=== PATIENT | female | born 1990 | race Caucasian/White ===

== ENCOUNTER 2017-05-11 10:53 | Emergency (ER) | payer OTHER ==
[2017-05-11] MEDS ORDERED: HYDROcodone/APAP 5-325MG 1 EACH TAB PO STA (11:28)
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
--- NOTE | 2017-05-11 12:14 | XR ---
EXAMINATION TYPE: XR knee complete LT DATE OF EXAM: 05/11/2017 CLINICAL HISTORY: pain, history of tibial plateau fracture. TECHNIQUE: Three views of the left knee are obtained. COMPARISON: None. FINDINGS: Chronic tibial plateau deformity identified. There is ossific density adjacent to the media l femoral condyle. Avulsion fractures difficult to exclude. Correlate clinically with point tendernes s. IMPRESSION: There is ossific density adjacent to the medial femoral condyle. Avulsion fractures difficult to exc lude.
[2017-05-11 13:00] VITALS: BP 131/87; PULSE 72; RESP 16; TEMP 98.1
== END 2017-05-11 13:22 | disposition home or self-care (01) ==
LOC: EC 10:53
DX: S82.142A Displaced bicondylar fracture of left tibia, initial encounter for closed fracture (principal); F17.200 Nicotine dependence, unspecified, uncomplicated; X58.XXXA Exposure to other specified factors, initial encounter; Y92.009 Unspecified place in unspecified non-institutional (private) residence as the place of occurrence of the external cause
CPT/HCPCS: 73562; 99283; L1830

== ENCOUNTER → 2018-03-11 | Outpatient (CLI) | payer OTHER ==
--- NOTE | 2018-03-11 17:17 | US ---
EXAMINATION TYPE: US OB anatomy trans abd DATE OF EXAM: 03/11/2018 COMPARISON: NONE HISTORY: O36.62 large for dates second trimester TECHNIQUE: Transabdominal (TA) EXAM MEASUREMENTS: GESTATIONAL AGE / DATING Physician Established: unsure EDC: not established Dates by LMP: unsure EDC: not established Dates by First Scan: (24 weeks/3 days) EDC: 06/28/2018 Dates by Current Scan for: (23 weeks/2 days) EDC: 07/06/2018 SURVEY IUP: Single PLACENTA: Posterior PREVIA: low MARIA DOLORES: 14.4 cm Normal CERVICAL LENGTH (transabdominal: norm > 3.0cm): 3.9 cm BIOMETRY PRESENTATION: Vertex LIE: Longitudinal BPD: 5.8 cm 23 weeks / 6 days HC: 21 cm 23 weeks / 2 days AC: 19.0 cm 23 weeks / 5 days FL: 4.2 cm 23 weeks / 4 days ESTIMATED WEIGHT IN GRAMS: 617 grams ESTIMATED WEIGHT IN LBS/OZ: 1 lbs. 6 oz. WEIGHT PERCENTAGE BASED ON ESTABLISHED DATE: 13 % HC/AC: 1.1 FL/AC: 22.1 HEART RATE: 145 bpm RHYTHM: Normal ANATOMY SEEN (within normal limits): * Lateral Vent (< 1 cm) 0.9 cm * Cisterna Magna (< 1.1 cm) 0.3 cm * Nuchal Fold (< 0.6 cm) 0.2 cm * Cerebellum (varies with age) 2.4 cm Choroid Plexus (bilateral) Midline Falx Cavus Septi Pellucidi Four Chamber Heart Outflow tracts: LVOT/RVOT Stomach Situs Nose / Lips Diaphragm Kidneys (bilateral) Bladder Cord Insert Three Vessel Cord Longitudinal Spine Transverse Spine Arms (bilateral) Legs (bilateral) IMPRESSION: There is no evidence of macrosomia. The ultrasound gestational age is 23 weeks 2 days. The FENG according to this exam is 07/06/2018. I do not have an old exam to compare.
== END | disposition home or self-care (01) ==
LOC: RADUSWWP 16:11
PROVIDERS: ATTEND Obstetrics & Gynecology
DX: O36.62X0 Maternal care for excessive fetal growth, second trimester, not applicable or unspecified (principal); Z3A.23 23 weeks gestation of pregnancy
CPT/HCPCS: 76811

== ENCOUNTER 2018-06-21 06:00 | Inpatient (IN) | payer OTHER ==
[2018-06-22] MEDS ORDERED: TERBUTALINE 1 MG/ML VIAL SQ PRN (06:49)
[2018-06-22] MEDS ORDERED: CARBOPROST TROMETHAMINE 250 MCG/ML 1 ML AMP IM PRN (06:49)
[2018-06-22] MEDS ORDERED: OXYTOCIN 10 UNIT/ML 1 ML VIAL IM PRN (06:49)
[2018-06-22] MEDS ORDERED: METHYLERGONOVINE 0.2 MG/ML 1 ML AMP IM PRN (06:49)
[2018-06-22] MEDS ORDERED: LIDOCAINE 1% (PF) 10 MG/ML (30 ML SDV) SQ PRN (06:49)
[2018-06-22] MEDS ORDERED: OXYTOCIN 20 UNITS/1000 ML NS 1,000 ML IV SCH (07:00)
[2018-06-22 07:06] LABS: Basophils % (A) 1 %; Eosinophils # (A) 0.1 k/uL (0-0.7); Eosinophils % (A) 2 %; HCT 34.7 % (34.0-46.0); HGB 11.6 gm/dL (11.4-16.0); Lymphocytes # (A) 1.5 k/uL (1.0-4.8); Lymphocytes % (A) 26 %; MCH 30.6 pg (25.0-35.0); MCHC 33.4 g/dL (31.0-37.0); MCV 91.4 fL (80.0-100.0); Mean Platelet Volume 7.7; Monocytes # (A) 0.4 k/uL (0-1.0); Monocytes % (A) 7 %; Neutrophils # (A) 3.5 k/uL (1.3-7.7); Neutrophils % (A) 61 %; Platelet Count 237 k/uL (150-450); RDW 13.4 % (11.5-15.5); WBC 5.7 k/uL (3.8-10.6)
[2018-06-22] MEDS: LACTATED RINGERS 1,000 ML IV SCH ×3 (07:07→12:09)
[2018-06-22 07:31] VITALS: BMI 29.0
[2018-06-22 09:03] LABS: Amphetamine Screen,Urine Not Detected (NotDetected); Barbiturate Screen,Urine Not Detected (NotDetected); Benzodiazepines Screen,Urine Not Detected (NotDetected); Cocaine Screen,Urine Not Detected (NotDetected); Methadone Screen, Urine Not Detected (NotDetected); Opiate Screen,Urine Not Detected (NotDetected); Oxycodone Screen, Urine Not Detected (NotDetected); Phencyclidine Screen,Urine Not Detected (NotDetected); Tricyclic Antidepressant,Urine Not Detected (NotDetected); Urn Cannabinoid Scrn Not Detected (NotDetected)
[2018-06-22] MEDS ORDERED: ROPIVACAINE 100 MG, fentaNYL (PF) 200 MCG in SODIUM CHLORIDE 0.9% 76 ML EPIDURAL ONE (11:21)
[2018-06-22] MEDS ORDERED: AMPICILLIN 2,000 MG in SODIUM CHLORIDE 0.9% 100 ML IVPB STA (14:02)
[2018-06-22] MEDS ORDERED: SIMETHICONE 80 MG CHEWABLE PO PRN (16:57)
[2018-06-22] MEDS ORDERED: LANOLIN CREAM 5 GM TUBE TOPICAL PRN (16:57)
[2018-06-22] MEDS ORDERED: diphenhydrAMINE 50 MG CAP PO PRN (16:57)
[2018-06-22] MEDS ORDERED: WITCH HAZEL 1 EACH MED..PAD TOPICAL PRN (16:57)
[2018-06-22] MEDS ORDERED: diphenhydrAMINE 25 MG CAP PO PRN (16:57)
[2018-06-22] MEDS ORDERED: BENZOCAINE/MENTHOL SPRAY 1 GM/SPRAY AEROSOL TOPICAL PRN (16:57)
[2018-06-22] MEDS ORDERED: HYDROCORTISONE 2.5% RECTAL CREAM 30 GM TUBE RECTAL PRN (16:57)
[2018-06-22] MEDS ORDERED: diphenhydrAMINE 50 MG/ML 1 ML VIAL IVP PRN ×2 (16:57)
[2018-06-22] MEDS ORDERED: ZOLPIDEM 5 MG TAB PO PRN (16:57)
[2018-06-22] MEDS ORDERED: MEASLES-MUMPS-RUBELLA VACC/PF 12,500 UNIT/0.5 ML VIAL SQ ONE (16:57)
--- NOTE | 2018-06-22 17:00 | P.HPOB ---
History of Present Illness H&P Date: 06/22/18 Chief Complaint: Intrauterine at term Susan is a 28-year-old at 39 weeks gestation who arrives for induction of labor due to discomfort. For the last half of the she has been incarcerated and that is really the only complication we have had during this . Pertinent labs include A+ blood type Rh antibody was negative, rubella nonimmune, hepatitis B surface antigen and RPR and GBS were all negative. She is in the hospital this time without a residential care officer but they will notify the corrections once ready to be discharged. All the questions were answered for her and artificial rupture membranes was performed with her dilated to 2 cm and 80% effaced and -2 station and we had a category 1 tracing. Past Medical History Past Medical History: No Reported History History of Any Multi-Drug Resistant Organisms: None Reported Past Surgical History: No Surgical Hx Reported Past Anesthesia/Blood Transfusion Reactions: No Reported Reaction Past Psychological History: No Psychological Hx Reported Smoking Status: Current every day smoker Past Alcohol Use History: Abuse, Occasional Past Drug Use History: None Reported - Past Family History Father Family Medical History: No Reported History Medications and Allergies Home Medications Medication Instructions Recorded Confirmed Type No Known Home Medications 06/22/18 06/22/18 History Allergies Allergy/AdvReac Type Severity Reaction Status Date / Time No Known Allergies Allergy Verified 06/22/18 06:49 Exam Osteopathic Statement: *. No significant issues noted on an osteopathic structural exam other than those noted in the History and Physical/Consult. Vital Signs Temp Pulse Resp BP Pulse Ox 06/22/18 16:13 98.6 F 114 H 16 122/63 06/22/18 15:58 102 H 17 114/61 06/22/18 15:43 98.9 F 96 18 115/55 06/22/18 15:28 102 H 18 114/55 06/22/18 15:13 105 H 18 111/54 95 06/22/18 07:25 98.7 F 106 H 18 112/74 98 Intake and Output 06/22/18 06/22/18 06/22/18 06:59 14:59 22:59 Output Total 200 Balance -200 Output: Urine 200 Other: Weight 72.121 kg 72.121 kg - OBG Physical Exam Breast: both: normal (no masses) Abdomen: bowel sounds normal, no diffuse tenderness, no bruit present, no guarding noted, no hepatomegaly, no splenomegaly, no mass Vulva: both: normal Vagina: normal moisture, no discharge Cervix: no lesion, no discharge Uterus: normal size, normal contour Adnexa: both: normal Anus/Rectum: normal perianal skin, no rectal mass, no hemorrhoids, heme negative Results Result Diagrams: 06/22/18 06:45
--- NOTE | 2018-06-22 17:01 | P.PROBDLV ---
Vaginal Delivery Note - . Vaginal Delivery Note: Patient breast complete and pushed with spontaneous vaginal delivery of a viable female over an intact perineum. Following delivery of the head nuchal cord 1 was noted and the baby was delivered through that nuchal cord. Baby was delivered from left occiput anterior position and anterior shoulder was easily delivered with gentle downward traction followed by upper traction to deliver the posterior shoulder and remainder of the baby. Mouth nares were bulb suctioned and umbilical cord was then clamped cut usual fashion with nursery present to assume care. scores were 8 and 9 at one and 5 minutes respectively and the weight was 8 lbs. 3 oz. Both mother and baby are stable following delivery.
[2018-06-22] MEDS ORDERED: DIPH,PERTUS(ACELL)TETVAC-LF 0.5 ML VIAL IM ONE (17:03)
[2018-06-22] MEDS ORDERED: AMPICILLIN 1,000 MG in SODIUM CHLORIDE 0.9% 50 ML IVPB SCH (18:00)
[2018-06-22] MEDS: IBUPROFEN 600 MG TAB PO PRN (19:32)
[2018-06-22] MEDS: SENNOSIDES-DOCUSATE SODIUM 1 EACH TAB PO SCH (20:55)
[2018-06-23] MEDS: ACETAMINOPHEN TAB 325 MG TAB PO PRN ×4 (00:12→23:09)
[2018-06-23] MEDS: IBUPROFEN 600 MG TAB PO PRN ×3 (02:14→19:38)
[2018-06-23] MEDS: SENNOSIDES-DOCUSATE SODIUM 1 EACH TAB PO SCH ×2 (11:04→19:39)
--- NOTE | 2018-06-23 19:18 | P.PNOBGVD ---
Subjective - Subjective Principal diagnosis: day 1 Interval history: Doing very well. Vital signs are stable and afebrile. He is involuting, voiding and she is currently tolerating her diet. Patient reports: Reports appetite normal, Reports voiding normally, Reports pain well controlled, Reports ambulating normally : doing well Objective - Latest Vital Signs Latest vital signs: Vital Signs Temp Pulse Resp BP Pulse Ox 06/23/18 16:00 98.5 F 85 18 121/60 98 06/23/18 08:00 98.4 F 86 18 106/67 96 06/23/18 00:00 98.4 F 80 16 109/70 06/22/18 19:45 99.1 F 122 H 16 117/71 Intake and Output 06/23/18 06/23/18 06/23/18 06:59 14:59 22:59 Other: # Voids 1 1 1 - Exam Lungs: bilateral: normal Chest: Normal S1, Normal S2 Extremities: Present: normal Abdomen: Present: normal appearance, soft Uterus: Present: normal, firm
[2018-06-24] MEDS: IBUPROFEN 600 MG TAB PO PRN (07:23)
[2018-06-24] MEDS: SENNOSIDES-DOCUSATE SODIUM 1 EACH TAB PO SCH (07:24)
[2018-06-24 07:31] VITALS: BP 114/67; PULSE 84; RESP 18; TEMP 99
--- NOTE | 2018-06-24 09:49 | P.DS ---
Providers Date of admission: 06/22/18 06:48 Expected date of discharge: 06/24/18 Attending physician: Arnol Ozuna [facility] Course: Susan is doing very well day 2. We'll plan discharge today. We' ll need to notify surface department was taken pick her up. Vital signs are stable and afebrile she voices no other complaints. She is ambulating, voiding and she is tolerating her diet. On physical exam heart regular, lungs clear, extremities are without pain. Abdomen is soft uterus is firm and lochia is reported to be light. Assessment day 2. Plan discharge back to the care of [facility] Department and a prescription is provided for Motrin 600 but that would be something that the [facility] department have to manage. She will follow up with me in 6 weeks, discharge instructions thoroughly reviewed. Patient Condition at Discharge: Good Plan - Discharge Summary New Discharge Prescriptions: New Ibuprofen [Motrin] 600 mg PO Q6HR PRN #30 tab PRN Reason: Pain Discharge Medication List Ibuprofen [Motrin] 600 mg PO Q6HR PRN #30 tab 06/24/18 [Rx] Follow up Appointment(s)/Referral(s): Arnol Ozuna DO [Doctor of Osteopathic Medicine] - 6 Weeks Activity/Diet/Wound Care/Special Instructions: No heavy lifting, limit stairs and driving, and pelvic rest. If any high temperatures, heavy bleeding, or severe pain call my office Discharge Disposition: HOME SELF-CARE
[2018-06-24] MEDS: ACETAMINOPHEN TAB 325 MG TAB PO PRN (12:47)
== END 2018-06-24 16:25 | disposition home or self-care (01) | DRG 775 ==
LOC: 4FBP 06-22 06:48
PROVIDERS: ADMIT Obstetrics & Gynecology; ATTEND Obstetrics & Gynecology
PROC: 10E0XZZ Delivery of Products of Conception, External Approach (ICD-10-PCS; principal; 2018-06-22)
PROC: 00HU33Z Insertion of Infusion Device into Spinal Canal, Percutaneous Approach (ICD-10-PCS; 2018-06-22)
PROC: 3E0R3BZ Introduction of Anesthetic Agent into Spinal Canal, Percutaneous Approach (ICD-10-PCS; 2018-06-22)
DX: O69.81X0 Labor and delivery complicated by cord around neck, without compression, not applicable or unspecified (principal); Z37.0 Single live birth; O99.334 Smoking (tobacco) complicating childbirth; F17.200 Nicotine dependence, unspecified, uncomplicated; Z3A.39 39 weeks gestation of pregnancy
CPT/HCPCS: 80306; 85025; 90707; 90715

== ENCOUNTER 2019-05-28 15:01 | Inpatient (IN) | payer OTHER ==
[2019-05-28 17:51] VITALS: BMI 32.3
[2019-05-28] MEDS ORDERED: TERBUTALINE 1 MG/ML VIAL SQ PRN (17:52)
[2019-05-28] MEDS ORDERED: OXYTOCIN 10 UNIT/ML 1 ML VIAL IM PRN (17:52)
[2019-05-28] MEDS ORDERED: CARBOPROST TROMETHAMINE 250 MCG/ML 1 ML AMP IM PRN (17:52)
[2019-05-28] MEDS ORDERED: METHYLERGONOVINE 0.2 MG/ML 1 ML AMP IM PRN (17:52)
[2019-05-28] MEDS ORDERED: LIDOCAINE 0.5% (PF) 5 MG/ML (50 ML SDV) SQ PRN (17:52)
[2019-05-28] MEDS ORDERED: OXYTOCIN 30 UNITS/500 ML NS 30 UNIT in SALINE 1 500ML.BAG IV SCH (18:00)
[2019-05-28 18:08] LABS: Basophils % (A) 0 %; Eosinophils # (A) 0.1 k/uL (0-0.7); Eosinophils % (A) 1 %; HCT 36.6 % (34.0-46.0); HGB 12.1 gm/dL (11.4-16.0); Lymphocytes # (A) 2.1 k/uL (1.0-4.8); Lymphocytes % (A) 25 %; MCH 30.8 pg (25.0-35.0); MCHC 33.2 g/dL (31.0-37.0); MCV 92.9 fL (80.0-100.0); Mean Platelet Volume 7.5; Monocytes # (A) 0.4 k/uL (0-1.0); Monocytes % (A) 4 %; Neutrophils # (A) 5.7 k/uL (1.3-7.7); Neutrophils % (A) 67 %; Platelet Count 252 k/uL (150-450); RBC 3.94 m/uL (3.80-5.40); RDW 13.3 % (11.5-15.5); WBC 8.5 k/uL (3.8-10.6)
[2019-05-28 18:12] LABS: Amphetamine Screen,Urine Not Detected (NotDetected); Barbiturate Screen,Urine Not Detected (NotDetected); Benzodiazepines Screen,Urine Not Detected (NotDetected); Cocaine Screen,Urine Not Detected (NotDetected); Methadone Screen, Urine Not Detected (NotDetected); Opiate Screen,Urine Not Detected (NotDetected); Oxycodone Screen, Urine Not Detected (NotDetected); Phencyclidine Screen,Urine Not Detected (NotDetected); Tricyclic Antidepressant,Urine Not Detected (NotDetected); Urn Cannabinoid Scrn Not Detected (NotDetected)
[2019-05-28] MEDS: LACTATED RINGERS 1,000 ML IV SCH ×2 (18:36→19:10)
--- NOTE | 2019-05-28 18:56 | P.HPOB ---
History of Present Illness H&P Date: 05/28/19 Chief Complaint: LAbor 29 year old presents at 39 weeks 2 days in labor. Her cervix is 5/50/-3. She is sebastian every 2-4 minutes rating them 8-10. heart tones are 130s moderate variability and reactive. Review of Systems All systems: negative Constitutional: Denies chills, Denies fever Eyes: denies blurred vision, denies pain Ears, nose, mouth and throat: Denies headache, Denies sore throat Cardiovascular: Denies chest pain, Denies shortness of breath Respiratory: Denies cough Gastrointestinal: Denies abdominal pain, Denies diarrhea, Denies nausea, Denies vomiting Genitourinary: Denies dysuria, Denies hematuria Musculoskeletal: Denies myalgias Integumentary: Denies pruritus, Denies rash Neurological: Denies numbness, Denies weakness Psychiatric: Denies anxiety, Denies depression Endocrine: Denies fatigue, Denies weight change Past Medical History Past Medical History: No Reported History Additional Past Medical History / Comment(s): Obstetric history: She has had 3 previous vaginal deliveries this is her fourth . She's had care with Dr. Ozuna since 23 weeks gestation. She's been incarcerated for most of her , including today until a health promotion officer brought her to the hospital. Blood type is A+, antibodies negative, rubella nonimmune, hepatitis B negative, RPR nonreactive, abnormal 1 hour glucose tolerance test, but normal 3 hour. GBS negative History of Any Multi-Drug Resistant Organisms: None Reported Past Surgical History: No Surgical Hx Reported Past Anesthesia/Blood Transfusion Reactions: No Reported Reaction Past Psychological History: No Psychological Hx Reported Smoking Status: Former smoker Past Alcohol Use History: Abuse, Occasional Past Drug Use History: None Reported - Past Family History Father Family Medical History: No Reported History Medications and Allergies Home Medications Medication Instructions Recorded Confirmed Type Pnv No.95/Ferrous Fum/Folic AC 1 each PO DAILY 03/21/19 05/28/19 History [ Multivitamin Tablet] Allergies Allergy/AdvReac Type Severity Reaction Status Date / Time No Known Allergies Allergy Verified 03/21/19 15:31 Exam Osteopathic Statement: *. No significant issues noted on an osteopathic structural exam other than those noted in the History and Physical/Consult. Vital Signs Temp Pulse Resp BP 05/28/19 17:41 100 16 119/68 05/28/19 15:30 99 F 106 H 14 132/80 Intake and Output 05/28/19 05/28/19 05/28/19 06:59 14:59 22:59 Other: Weight 80.286 kg Heart: Regular rate and rhythm Lungs: Clear to auscultation bilaterally Abdomen: Soft, nontender Extremities: Negative Homans sign Results Result Diagrams: 05/28/19 17:51 Assessment and Plan (1) Normal labor Current Visit: Yes Status: Acute Code(s): O80 - ENCOUNTER FOR FULL-TERM UNCOMPLICATED DELIVERY; Z37.9 - OUTCOME OF DELIVERY, UNSPECIFIED SNOMED Code(s): 15996111 Plan: 1. Admit to family place 2. Expectant management 3. Anticipate normal vaginal delivery
[2019-05-28] MEDS ORDERED: SODIUM CHLORIDE 0.9% 100 ML BAG ONE (19:04)
[2019-05-28] MEDS ORDERED: fentaNYL (PF) 50 MCG/ML 5 ML AMP ONE (19:04)
[2019-05-28] MEDS ORDERED: ROPIVACAINE 5MG/ML 20ML VIAL ONE (19:04)
--- NOTE | 2019-05-28 23:20 | P.PROBDLV ---
Vaginal Delivery Note - . Vaginal Delivery Note: 29 year old presents at 39 weeks 2 days in labor. Her cervix is 5/50/-3. She is sebastian every 2-4 minutes rating them 8-10. heart tones are 130s moderate variability and reactive. Amniotomy was performed at 1938 and scant amount of blood-tinged fluid was noted. She did get an epidural and was comfortable. She progressed to complete at 2302, pushed and delivered a viable female infant at 230 over intact perineum under epidural anesthesia. Head de livered SUSY, anterior shoulder which was the left shoulder delivered gentle downward guidance followed by posterior shoulder and rest of body. Nose and mouth bulb suctioned, cord clamped and cut, infant placed mother's abdomen. Apgars 9, 9, weight 8 lbs. 10 oz. Placenta delivered spontaneously, intact with three-vessel cord at 2309. Vagina, cervix, perineum inspected. No lacerations noted. Estimated blood loss 150 mL. Mother and baby in stable condition.
[2019-05-28] MEDS ORDERED: BENZOCAINE/MENTHOL SPRAY 1 GM/SPRAY AEROSOL TOPICAL PRN (23:43)
[2019-05-28] MEDS ORDERED: SIMETHICONE 80 MG CHEWABLE PO PRN (23:43)
[2019-05-28] MEDS ORDERED: diphenhydrAMINE 25 MG CAP PO PRN (23:43)
[2019-05-28] MEDS ORDERED: ZOLPIDEM 5 MG TAB PO PRN (23:43)
[2019-05-28] MEDS ORDERED: HYDROCORTISONE 2.5% RECTAL CREAM 30 GM TUBE RECTAL PRN (23:43)
[2019-05-28] MEDS ORDERED: diphenhydrAMINE 50 MG CAP PO PRN (23:43)
[2019-05-28] MEDS ORDERED: diphenhydrAMINE 50 MG/ML 1 ML VIAL IVP PRN ×2 (23:43)
[2019-05-28] MEDS ORDERED: LANOLIN CREAM 5 GM TUBE TOPICAL PRN (23:43)
[2019-05-28] MEDS ORDERED: WITCH HAZEL 1 EACH MED..PAD TOPICAL PRN (23:43)
[2019-05-28] MEDS ORDERED: OXYTOCIN 20 UNITS/1000 ML NS 1,000 ML IV SCH (23:45)
[2019-05-29] MEDS: IBUPROFEN 600 MG TAB PO PRN ×3 (02:09→20:19)
[2019-05-29] MEDS: ACETAMINOPHEN TAB 325 MG TAB PO PRN ×2 (07:24→23:42)
[2019-05-29 07:56] VITALS: TEMP 98.2
[2019-05-29 07:59] LABS: Basophils % (A) 0 %; Eosinophils # (A) 0.1 k/uL (0-0.7); Eosinophils % (A) 1 %; HCT 33.2 % (34.0-46.0); HGB 11.3 gm/dL (11.4-16.0); Lymphocytes % (A) 20 %; MCH 31.1 pg (25.0-35.0); MCHC 34.2 g/dL (31.0-37.0); MCV 90.9 fL (80.0-100.0); Mean Platelet Volume 7.7; Monocytes # (A) 0.6 k/uL (0-1.0); Monocytes % (A) 5 %; Neutrophils # (A) 7.3 k/uL (1.3-7.7); Neutrophils % (A) 72 %; Platelet Count 218 k/uL (150-450); RBC 3.65 m/uL (3.80-5.40); RDW 13.6 % (11.5-15.5); WBC 10.2 k/uL (3.8-10.6)
--- NOTE | 2019-05-29 10:45 | P.PNOBGVD ---
Subjective - Subjective Principal diagnosis: S/P NVD PPD #1 Interval history: Patient seen and examined. Denies nausea, vomiting, chest pain, shortness of breath or calf pain. Patient reports: Reports appetite normal, Reports voiding normally, Reports pain well controlled, Reports ambulating normally : doing well Objective - Latest Vital Signs Latest vital signs: Vital Signs Temp Pulse Resp BP Pulse Ox 05/29/19 07:55 98.2 F 92 16 126/81 05/29/19 04:00 98.3 F 93 16 120/69 96 05/29/19 01:10 98.7 F 114 H 16 124/67 05/29/19 00:55 94 116/67 05/29/19 00:40 105 H 16 118/68 05/29/19 00:25 98.1 F 97 16 127/78 05/29/19 00:10 103 H 16 125/71 05/28/19 23:55 98.3 F 103 H 16 119/68 05/28/19 23:40 98.2 F 114 H 16 112/59 05/28/19 23:25 98.7 F 85 16 118/65 05/28/19 23:10 90 16 116/72 05/28/19 17:41 100 16 119/68 05/28/19 15:30 99 F 106 H 14 132/80 Intake and Output 05/28/19 05/29/19 05/29/19 22:59 06:59 14:59 Intake Total 100 Balance 100 Intake: Oral 100 Other: # Voids 1 1 Weight 80.286 kg - Exam Lungs: bilateral: normal Chest: Normal S1, Normal S2 Extremities: Present: normal Abdomen: Present: normal appearance, soft Uterus: Present: normal, firm - Labs Labs: Abnormal Lab Results - Last 24 Hours (Table) 05/29/19 Range/Units 06:24 RBC 3.65 L (3.80-5.40) m/uL Hgb 11.3 L (11.4-16.0) gm/dL Hct 33.2 L (34.0-46.0) % Assessment and Plan (1) Normal labor Current Visit: Yes Status: Resolved Code(s): O80 - ENCOUNTER FOR FULL-TERM UNCOMPLICATED DELIVERY; Z37.9 - OUTCOME OF DELIVERY, UNSPECIFIED SNOMED Code(s): 61359640 (2) Normal vaginal delivery Current Visit: Yes Status: Acute Code(s): O80 - ENCOUNTER FOR FULL-TERM UNCOMPLICATED DELIVERY SNOMED Code(s): 02097660 Plan: 1. cont pp care
[2019-05-29] MEDS: SENNOSIDES-DOCUSATE SODIUM 1 EACH TAB PO SCH (20:19)
[2019-05-30] MEDS: IBUPROFEN 600 MG TAB PO PRN ×2 (01:20→11:18)
[2019-05-30] MEDS: SENNOSIDES-DOCUSATE SODIUM 1 EACH TAB PO SCH ×2 (01:55→09:45)
[2019-05-30] MEDS: ACETAMINOPHEN TAB 325 MG TAB PO PRN ×2 (08:01→13:29)
[2019-05-30 08:31] VITALS: BP 128/64; PULSE 82; RESP 16
--- NOTE | 2019-05-30 08:36 | P.DS ---
Providers Date of admission: 05/28/19 17:23 Expected date of discharge: 05/30/19 Attending physician: Arnol Ozuna Primary care physician: Arnol Ozuna [facility] Course: Susan is doing very well day 2. She's ablating, voiding and tolerating her diet. She voices no complaint. Vital signs are stable and afebrile. Heart regular, lungs clear, extremities without pain. Abdomen soft uterus is firm. She'll be discharged back to assisted today. All questions were answered for her and discharge instructions thoroughly reviewed. She'll be able to return to normal activities at the assisted in 2 weeks. Follow up in 6 weeks. Prescription for Motrin provided. Patient Condition at Discharge: Good Plan - Discharge Summary Discharge Rx Participant: Yes New Discharge Prescriptions: New Ibuprofen [Motrin] 600 mg PO Q6HR PRN #30 tab PRN Reason: Pain No Action Pnv No.95/Ferrous Fum/Folic AC [ Multivitamin Tablet] 1 each PO DAILY Discharge Medication List Pnv No.95/Ferrous Fum/Folic AC [ Multivitamin Tablet] 1 each PO DAILY 03/21/19 [History] Ibuprofen [Motrin] 600 mg PO Q6HR PRN #30 tab 05/30/19 [Rx] Follow up Appointment(s)/Referral(s): Arnol Ozuna DO [Primary Care Provider] - 6 Weeks Activity/Diet/Wound Care/Special Instructions: No heavy lifting, limit stairs and driving, and pelvic rest. If any high temperatures, heavy bleeding, or severe pain call my office Discharge Disposition: HOME SELF-CARE
--- NOTE | 2019-05-31 12:41 | P.MSEPDOC ---
Presenting Problems - Arrival Data Date of Arrival on Unit: 05/28/19 Time of Arrival on Unit: 17:25 Mode of Transport: Ambulatory - Complaint OB-Reason for Admission/Chief Complaint: Possible Onset of Labor Medical History - Information : 4 Para: 3 Term: 0 : 0 Abortions: Spontaneous or Elective: 0 Number of Living Children: 3 - Gestational Age Gestational Age by FENG (wks/days): 39 Weeks and 3 Days Review of Systems - Review of Systems Constitutional: No problems Breast: No problems ENT: No problems Cardiovascular: No problems Respiratory: No problems Gastrointestinal: No problems Genitourinary: No problems Musculoskeletal: No problems Neurological: No problems Skin: No problems Vital Signs - Temperature Temperature: 98.2 F Temperature Source: Oral - Pulse Right Brachial Pulse Rate: 82 Pulse Assessment Method: Automatic Cuff - Respirations Respiratory Rate: 16 - Blood Pressure Right Arm Blood Pressure: 128/64 Blood Pressure Mean: 85 Blood Pressure Source: Automatic Cuff Medical Screen Scoring (Pre) - Cervical Exam Dilation: 4-7 cm = 2 Membranes: Intact - Uterine Contractions Frequency: > 5 minutes apart = 1 Duration: > 40 seconds = 2 - Maternal Vital Signs Maternal Temperature: N/A Maternal Blood Pressure: N/A Signs of Preeclampsia: N/A Maternal Respirations: N/A - Maternal Trauma Maternal Trauma: N/A - Assessment - Baby A Baseline FHR: 145 NST: Reactive Position: N/A - Total Score - Baby A Total Score - Baby A: 5 - Total Score - Baby B Total Score - Baby B: 5 - Total Score - Baby C Total Score - Baby C: 5 - Level of Risk - Baby A Level of Risk - Baby A: Low (0-5) - Level of Risk - Baby B Level of Risk - Baby B: Low (0-5) - Level of Risk - Baby C Level of Risk - Baby C: Low (0-5) Medical Screen Scoring (Post) - Cervical Exam Dilation: 4-7 cm = 2 Membranes: Intact - Uterine Contractions Duration: > 40 seconds = 2 - Maternal Vital Signs Maternal Temperature: N/A Maternal Blood Pressure: N/A Maternal Respirations: N/A - Maternal Trauma Maternal Trauma: N/A - Assessment - Baby A Heart Rate: 150 Heart Rate - NICHD Category: Category I (Normal) = 0 NST: Reactive - Total Score Total Score - Baby A: 4 Total Score - Baby B: 4 Total Score - Baby C: 4 - Post Treatment Level of Risk Post Treatment Level of Risk - Baby A: Low (0-5) Post Treatment Level of Risk - Baby B: Low (0-5) Post Treatment Level of Risk - Baby C: Low (0-5) Physician Notification (Post) - Physician Notified Physician Notified Date: 05/28/19 Physician Notified Time: 17:20 Physician/Practitioner Notified:: nicole Spoke With: nicole Lin Order Received: Yes - Notification Comment Comment: admit for labour Disposition - Disposition OB Disposition: Admit Discharge Date: 05/30/19 Discharge Time: 18:20 I agree with the RN Medical Screening Exam: Yes Risk & Benefit of care provided described in d/c instruction: Yes Diagnosis: ENCOUNTER FOR FULL-TERM UNCOMPLICATED DELIVERY
== END 2019-05-30 18:20 | DRG 807 ==
LOC: FBPOP 15:01 → 4FBP 17:23
PROVIDERS: ADMIT Obstetrics & Gynecology; ATTEND Obstetrics & Gynecology
PROC: 10E0XZZ Delivery of Products of Conception, External Approach (ICD-10-PCS; principal; 2019-05-28)
PROC: 00HU33Z Insertion of Infusion Device into Spinal Canal, Percutaneous Approach (ICD-10-PCS; 2019-05-28)
PROC: 3E0R3BZ Introduction of Anesthetic Agent into Spinal Canal, Percutaneous Approach (ICD-10-PCS; 2019-05-28)
DX: O80 Encounter for full-term uncomplicated delivery (principal); Z37.0 Single live birth; Z3A.39 39 weeks gestation of pregnancy; Z79.899 Other long term (current) drug therapy; Z87.891 Personal history of nicotine dependence
CPT/HCPCS: 59025; 80306; 85025; 86850; 86900; 86901; 99213

== ENCOUNTER 2020-06-04 02:12 | Emergency (ER) | payer OTHER ==
[2020-06-04] MEDS ORDERED: KETOROLAC 30 MG/ML 1 ML VIAL IVP STA (02:16)
[2020-06-04 02:17] VITALS: BP 115/74; PULSE 103; RESP 19; TEMP 98.4
--- NOTE | 2020-06-04 02:21 | ED ---
General Adult HPI - General Stated complaint: Fall Time Seen by Provider: 06/04/20 02:14 Source: patient, RN notes reviewed, old records reviewed Mode of arrival: EMS - History of Present Illness Initial comments: 30-year-old female with fall which occurred just prior to arrival complaining of left elbow pain. Patient was transported by EMS with deformity of the left elbow. She denies head neck or back trauma. She is complaining of severe pain at the elbow. No numbness or tingling in the left hand. She was given 8 mg of morphine prior to arrival to the emergency department. Patient denies current - Related Data Home Medications Medication Instructions Recorded Confirmed Pnv No.95/Ferrous Fum/Folic AC 1 each PO DAILY 03/21/19 05/28/19 [ Multivitamin Tablet] Previous Rx's Medication Instructions Recorded Acetaminophen [Tylenol] 325 mg PO Q4H PRN #30 tab 05/30/19 Ibuprofen [Motrin] 600 mg PO Q6HR PRN #30 tab 05/30/19 HYDROcodone/APAP 5-325MG [[place] 1 tab PO Q6HR PRN #12 tab 06/04/20 5-325] Ibuprofen [Motrin] 600 mg PO Q8HR PRN #24 tab 06/04/20 Allergies Allergy/AdvReac Type Severity Reaction Status Date / Time No Known Allergies Allergy Verified 06/04/20 02:17 Review of Systems ROS Statement: Those systems with pertinent positive or pertinent negative responses have been documented in the HPI. ROS Other: All systems not noted in ROS Statement are negative. Past Medical History Past Medical History: No Reported History Additional Past Medical History / Comment(s): Obstetric history: She has had 3 previous vaginal deliveries this is her fourth . She's had care with Dr. Ozuna since 23 weeks gestation. She's been incarcerated for most of her , including today until a correctional officer chief brought her to the hospital. Blood type is A+, antibodies negative, rubella nonimmune, hepatitis B negative, RPR nonreactive, abnormal 1 hour glucose tolerance test, but normal 3 hour. GBS negative History of Any Multi-Drug Resistant Organisms: None Reported Past Surgical History: No Surgical Hx Reported Past Anesthesia/Blood Transfusion Reactions: No Reported Reaction Past Psychological History: No Psychological Hx Reported Smoking Status: Current every day smoker Past Alcohol Use History: Occasional Past Drug Use History: None Reported - Past Family History Father Family Medical History: No Reported History General Exam General appearance: alert, in no apparent distress Head exam: Present: atraumatic, normocephalic Eye exam: Present: normal appearance, PERRL ENT exam: Present: normal exam Neck exam: Present: normal inspection. Absent: tenderness, meningismus Respiratory exam: Present: normal lung sounds bilaterally. Absent: respiratory distress Cardiovascular Exam: Present: regular rate, normal rhythm GI/Abdominal exam: Present: soft. Absent: distended, tenderness, guarding Extremities exam: Present: tenderness (Prominent olecranon, suspect posterior dislocation at the elbow, normal sensation, distal pulses are intact.), joint swelling. Absent: full ROM Neurological exam: Present: alert, oriented X3, CN II-XII intact Course Vital Signs 06/04/20 02:14 Temperature 98.4 F Pulse Rate 103 H Respiratory 19 Rate Blood Pressure 115/74 O2 Sat by Pulse 99 Oximetry Procedures - Orthopedic Joint Reduction Joint #1 Consent Obtained: verbal consent Side: left Joint Reduction Location: elbow Analgesia: other (Toradol) Technique Used: traction/counter-traction Post-Reduction Neuro Exam: intact Post-Reduction Vascular Exam: intact Post Reduction X-Ray Obtained: Yes Post Reduction X-Ray Results: reduced Splint Applied: Yes Patient Tolerated Procedure: well - Orthopedic Splinting/Casting Injury #1 Side: left Upper Extremity Injury Location: elbow Upper Extremity Immobilizer: posterior splint Medical Decision Making - Medical Decision Making 30-year-old female with fall, left elbow pain with deformity on exam. X-ray shows a posterior dislocation, this is reduced with traction and countertraction, patient tolerates this procedure very well. 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 She is placed in a posterior splint and placed in a sling. She's given orthopedic follow-up and will be placed on anti-inflammatories for pain control. Disposition Clinical Impression: Elbow dislocation Disposition: HOME SELF-CARE Condition: Good Instructions (If sedation given, give patient instructions): Elbow Dislocation (ED) Prescriptions: Ibuprofen [Motrin] 600 mg PO Q8HR PRN #24 tab PRN Reason: Pain HYDROcodone/APAP 5-325MG [[place] 5-325] 1 tab PO Q6HR PRN #12 tab PRN Reason: Pain Is patient prescribed a controlled substance at d/c from ED?: No Referrals: None,Stated [Primary Care Provider] - 1-2 days Jeremías Sebastian MD [STAFF PHYSICIAN] - 1-2 days Time of Disposition: 02:53
--- NOTE | 2020-06-04 02:34 | XR ---
EXAMINATION TYPE: XR elbow limited LT DATE OF EXAM: 06/04/2020 COMPARISON: None HISTORY: Fall. Elbow pain TECHNIQUE: 3 views FINDINGS: There is posterior dislocation of the elbow joint. There is also posterior dislocation of t he radiohumeral joint. I see no fracture line. IMPRESSION: Posterior dislocation of the elbow joint. No fracture seen.
--- NOTE | 2020-06-04 02:48 | XR ---
EXAMINATION TYPE: XR elbow limited LT DATE OF EXAM: 06/04/2020 COMPARISON: Today HISTORY: Post reduction TECHNIQUE: Single view FINDINGS: A single lateral views of the cast appears to show anatomic reduction of the elbow joint. I see no fracture line. IMPRESSION: Anatomic reduction. No complicating process seen.
== END 2020-06-04 02:55 | disposition home or self-care (01) ==
LOC: EC 02:12
DX: S53.105A Unspecified dislocation of left ulnohumeral joint, initial encounter (principal); F17.200 Nicotine dependence, unspecified, uncomplicated; W01.0XXA Fall on same level from slipping, tripping and stumbling without subsequent striking against object, initial encounter; Y92.009 Unspecified place in unspecified non-institutional (private) residence as the place of occurrence of the external cause
CPT/HCPCS: 96374; 73070; 24600; 99284; J1885